=== PATIENT | male | born 1980 | race Caucasian/White ===

== ENCOUNTER 2023-11-17 10:59 | Emergency (ER) | payer OTHER, SELFPAY ==
--- NOTE | ~2023-11-17 | CT_ITS ---
EXAMINATION: CT CERVICAL SPINE WITHOUT CONTRAST CLINICAL INFORMATION: Left-sided neck pain extending into the left arm. COMPARISON: None available. TECHNIQUE: Multidetector helical imaging of the cervical spine was obtained without intravenous contrast. Multiple axial reformats and coronal/sagittal reconstructions were created the technologist workstation for review. This CT examination was performed using dose optimization techniques as appropriate, variously including the following: *Automated exposure control. *Adjustment of mA and/or kV according to patient size (this includes techniques or standardized protocols for targeted exams where dose is matched to indication/reason for exam; i.e. extremities or head). *Use of iterative reconstruction technique. DLP: 287 mGy-cm FINDINGS: Congenital fusion of C1-C2. The atlantooccipital articulations appear flattened but remain well aligned. Straightening of the normal cervical lordosis. Otherwise, there is anatomic alignment of the vertebral bodies and posterior elements. No evidence of acute fracture or subluxation. The vertebral body heights are maintained. Moderate degenerative disc disease from C2-C4. Mild degenerative disc disease from C4-C7. Congenitally shortened pedicles from C2-C4. There is no prevertebral soft tissue swelling. The thyroid gland and remaining cervical soft tissues are within normal limits. The lung apices demonstrate no abnormalities. SPINAL LEVELS: C2-C3: Mild disc-osteophyte complex. There is moderate right and mild left uncovertebral joint arthropathy. There is moderate bilateral facet joint arthropathy. There is moderate right worse than left neural foraminal stenosis. Congenitally shortened pedicles. There appears to be moderate spinal canal stenosis. C3-C4: Mild disc-osteophyte complex. There is severe right and moderate left uncovertebral joint arthropathy. There is severe right and moderate left facet joint arthropathy. There is severe right and moderate left neural foraminal stenosis. Congenitally shortened right-sided pedicle. There appears to mild to moderate spinal canal stenosis. C4-C5: Mild disc-osteophyte complex. There is mild right and no left uncovertebral joint arthropathy. There is moderate left and mild right facet joint arthropathy. There is moderate bilateral neural foraminal stenosis. There is no demonstrated spinal canal stenosis. C5-C6: Mild disc-osteophyte complex. There is mild left and no right uncovertebral joint arthropathy. There is mild to moderate bilateral facet joint arthropathy. There is moderate left and mild right neural foraminal stenosis. There is no demonstrated spinal canal stenosis. C6-C7: Mild disc-osteophyte complex. There is mild bilateral uncovertebral joint arthropathy. There is mild bilateral facet joint arthropathy. There is mild bilateral neural foraminal stenosis. There is no demonstrated spinal canal stenosis. C7-T1: Normal annular contour. There is no uncovertebral joint arthropathy. There is no facet joint arthropathy. There is no neural foraminal stenosis. There is no demonstrated spinal canal stenosis. CT/CT cervical spine wo IV con IMPRESSION: No evidence of acute fracture or traumatic subluxation of the cervical spine. Moderate multilevel degenerative spondyloarthropathy of the cervical spine as described in detail above. 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 On this limited exam without intrathecal contrast, there appears to be moderate spinal canal stenosis at C2-C3 and C3-C4. Moderate to severe neural foraminal stenoses from C2-C6.
[2023-11-17 11:26] VITALS: BP 143/100; PULSE 84; RESP 16; TEMP 37.3; O2SAT 99; BMI 24.0
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
[2023-11-17 15:41] VITALS: BP 140/100; PULSE 52; RESP 16; TEMP 36.3; O2SAT 97
[2023-11-17 16:00] VITALS: BP 140/100; PULSE 52; RESP 16; TEMP 36.3; O2SAT 97
== END 2023-11-17 16:00 | disposition home or self-care (01) ==
PROVIDERS: Emergency Provider Emergency Medicine
DX: M50.31 Other cervical disc degeneration, high cervical region (principal); M48.02 Spinal stenosis, cervical region
CPT/HCPCS: 72125; 99283; 99284